=== PATIENT | female | born 1965 | race Caucasian/White ===

== ENCOUNTER 2020-08-23 19:01 | Emergency (ER) | payer OTHER ==
[~2020-08-23] VITALS: Ht 160 cm; Wt 63.5 kg
[2020-08-23] MEDS ORDERED: NORCO5 PO (20:31)
[2020-08-23 21:10] VITALS: BP 132/76
== END 2020-08-23 21:05 | disposition home or self-care (01) ==
LOC: ER 19:01
DX: M79.662 Pain in left lower leg (principal); Z88.1 Allergy status to other antibiotic agents

== ENCOUNTER 2020-09-04 14:10 | Emergency (ER) | payer OTHER ==
[~2020-09-04] VITALS: Ht 160 cm; Wt 47.2 kg
[~2020-09-04 14:10] MED LIST: NORCO5 PO
[2020-09-04 15:05] LABS: URINE BILIRUBIN NEGATIVE (Negative); URINE BLOOD 1+ (Negative); URINE CLARITY CLEAR; URINE COLOR YELLOW; URINE GLUCOSE-RANDOM* NEGATIVE (Negative); URINE KETONES NEGATIVE (Negative); URINE LEUKOCYTES-REFLEX NEGATIVE (Negative); URINE PROTEIN (DIPSTICK) NEGATIVE (Negative); URINE UROBILINOGEN 0.2 E.U./dl (0.2-1.0)
[2020-09-04 15:06] LABS: URINE NITRITE-REFLEX POSITIVE (Negative)
[2020-09-04] MEDS ORDERED: HYDROCODON-ACE1 EAC7 PO (15:11)
[2020-09-04] MEDS ORDERED: BACTRIM DS TAB1 EACH PO (15:11)
[2020-09-04 15:19] VITALS: BP 112/65
[2020-09-04 15:19] LABS: BACTERIA-REFLEX >30 Many /HPF (None Seen); CASTS None Seen /LPF (None Seen); CRYSTALS None Seen /LPF (None Seen); SQUAMOUS None Seen /LPF (0-3); URINE RBC 1-2 Rare /HPF (NONE SEEN); URINE WBC-REFLEX 0-5 Rare /HPF (0-5); WBC CLUMPS Rare (None Seen)
== END 2020-09-04 15:28 | disposition home or self-care (01) ==
LOC: ER 14:10
PROVIDERS: Nurse Practitioner
DX: G89.29 Other chronic pain (principal); M54.5 Low back pain; N39.0 Urinary tract infection, site not specified; Z88.0 Allergy status to penicillin; Z88.1 Allergy status to other antibiotic agents; Z88.5 Allergy status to narcotic agent; Z86.16 Personal history of COVID-19

== ENCOUNTER 2021-06-29 18:10 | Emergency (ER) | payer OTHER ==
[~2021-06-29] VITALS: Ht 160 cm; Wt 54.4 kg
[~2021-06-29 18:10] MED LIST changes: +BACTRIM DS TAB1 EACH PO; +HYDROCODON-ACE1 EAC7 PO
[2021-06-29] MEDS ORDERED: CLEOCIN HCL150 MG PO (18:41)
[2021-06-29 18:47] VITALS: BP 121/76
== END 2021-06-29 18:48 | disposition home or self-care (01) ==
LOC: ER 18:10
DX: K08.89 Other specified disorders of teeth and supporting structures (principal); F41.9 Anxiety disorder, unspecified; Z86.16 Personal history of COVID-19; Z88.0 Allergy status to penicillin; Z88.1 Allergy status to other antibiotic agents; Z88.6 Allergy status to analgesic agent